=== PATIENT | male | born 1975 | race American Indian/Alaskan Native ===

== ENCOUNTER 2017-11-01 18:24 | Emergency (ER) | payer BC ==
[2017-11-01 18:36] VITALS: BP 126/86; PULSE 93; RESP 16; TEMP 99.3; O2SAT 99
[2017-11-01] MEDS ORDERED: Sodium Chloride 0.9% 500 ML IV STA (19:48)
--- NOTE | 2017-11-01 20:00 | ED PDOC ---
Arrival/HPI - General Historian: Patient - History of Present Illness Time/Duration: Prior to Arrival Symptom Onset: Sudden Symptom Course: Unchanged Quality: Other (sharp ) Activities at Onset: Light Context: Home <Lauren Swann PA-C - Last Filed: 11/02/17 00:52> <Job Shipley - Last Filed: 11/02/17 05:00> - General Chief Complaint: Abdominal Pain Time Seen by Provider: 11/01/17 19:19 - History of Present Illness Narrative History of Present Illness (Text): 11/01/17 19:58 A 42 year old male, who denies any significant past medical history, presents to the emergency department for left sided flank pain that had an immediate on set. The patient reports the pain as constant, sharp, and non-radiating. The patient denies having this symptom in the past or having kidney stones. The patient denies any urinary symptoms, nausea, vomiting, diarrhea, or any other complaints at this time. PM[place] (Lauren Swann PA-C) Past Medical History - Provider Review Nursing Documentation Reviewed: Yes - Cardiac Hx Cardiac Disorders: No - Pulmonary Hx Respiratory Disorders: No - Neurological Hx Neurological Disorder: No - HEENT Hx HEENT Disorder: No - Renal Hx Renal Disorder: No - Endocrine/Metabolic Hx Endocrine Disorders: No - Integumentary Hx Dermatological Disorder: Yes Other/Comment: ACNE - Musculoskeletal/Rheumatological Hx Musculoskeletal Disorders: Yes Hx Gout: Yes - Gastrointestinal Hx Gastrointestinal Disorders: No - Genitourinary/Gynecological Hx Genitourinary Disorders: No - Psychiatric Hx Psychophysiologic Disorder: No Hx Substance Use: No <Lauren Swann PA-C - Last Filed: 11/02/17 00:52> Family/Social History - Physician Review Nursing Documentation Reviewed: Yes Family/Social History: Other (Diabetes and Cancer) Smoking Status: Never Smoked Hx Alcohol Use: Yes Frequency of alcohol use: Socially Hx Substance Use: No <Lauren Swann PA-C - Last Filed: 11/02/17 00:52> Allergies/Home Meds <Lauren Swann PA-C - Last Filed: 11/02/17 00:52> <Job Shipley - Last Filed: 11/02/17 05:00> Allergies/Adverse Reactions: Allergies No Known Allergies Allergy (Verified 11/01/17 18:30) Home Medications: Home Meds Medication Instructions Recorded Confirmed Doxycycline Hyclate [Doryx] 2 tab PO DAILY 11/01/17 11/01/17 Review of Systems - Review of Systems Gastrointestinal: absent: Diarrhea, Nausea, Vomiting Genitourinary Male: absent: Dysuria, Frequency, Hematuria Musculoskeletal: Other (left sided flank pain ) <Lauren Swann PA-C - Last Filed: 11/02/17 00:52> Physical Exam Vital Signs Reviewed: Yes Temperature: Afebrile Blood Pressure: Normal Pulse: Tachycardic Respiratory Rate: Normal Appearance: Positive for: Well-Appearing, Non-Toxic, Comfortable Pain Distress: Mild Mental Status: Positive for: Alert and Oriented X 3 - Systems Exam Head: Present: Atraumatic, Normocephalic Pupils: Present: PERRL Extroacular Muscles: Present: EOMI Conjunctiva: Present: Normal Mouth: Present: Moist Mucous Membranes Neck: Present: Normal Range of Motion Respiratory/Chest: Present: Clear to Auscultation, Good Air Exchange. No: Respiratory Distress, Accessory Muscle Use Cardiovascular: Present: Regular Rate and Rhythm, Normal S1, S2. No: Murmurs Abdomen: Present: Tenderness (left lower quadrant and left flank tenderness ), Normal Bowel Sounds. No: Distention, Peritoneal Signs Back: Present: Normal Inspection Upper Extremity: Present: Normal Inspection. No: Cyanosis, Edema Lower Extremity: Present: Normal Inspection. No: Edema Neurological: Present: GCS=15, CN II-XII Intact, Speech Normal Skin: Present: Warm, Dry, Normal Color. No: Rashes Psychiatric: Present: Alert, Oriented x 3, Normal Insight, Normal Concentration <Lauren Swann PA-C - Last Filed: 11/02/17 00:52> Vital Signs Temp Pulse Resp BP Pulse Ox 11/01/17 18:34 99.3 F 93 H 16 126/86 99 Medical Decision Making <Lauren Swann PA-C - Last Filed: 11/02/17 00:52> <Job Shipley - Last Filed: 11/02/17 05:00> ED Course and Treatment: 01/01/18 20:01 Impression: A 42 year old male with left sided flank pain. Differential Diagnosis included but are not limited to: Plan: -- Abd & Pel CT -- Labs -- Toadol, IV Fluids -- Urinalysis -- Reassess and disposition Progress Notes: Labs reviewed and are wnl, WBC is nl, UA shows no blood or evidence of UTI. Patient went to CT. On reevaluation, patient reports that his pain is improving, reports no nausea, vomiting, diarrhea. Has no additional complaints at this time. On exam, abdomen remained soft with mild left lower quadrant tenderness, no guarding, no rebound. CT results still pending. CT results shows +acute diverticulitis in the descending colon. Cipro IV and flagyl IV ordered. Patient notified of CT results. On second reevaluation, patient states that his pain is controlled at this time. He has no complaints. Abdominal exam reveals minimal left lower quadrant tenderness, no guarding, no rebound. Based on history, exam and diagnostic results plan will be for outpatient follow -up. Diagnosis of diverticulitis discussed with the patient in great detail. Patient advised of the importance of immediate follow-up with his PMD in 1-2 days without fail for re-evaluation. patient states that he feels comfortable going home and he states that he will be able to see his PMD tomorrow. Advised to take medication as prescribed. Return to the emergency room at any time for any new or worsening symptoms. Patient states he fully agrees with and understands discharge instructions. States that he agrees with the plan and disposition. Verbalized and repeated discharge instructions and plan. I have given the patient opportunity to ask any additional questions. (Shree CONNELLY,Lauren Morales) - Lab Interpretations Lab Results: 11/01/17 19:50 11/01/17 19:50 Lab Results 11/01/17 19:50: PT 11.1, INR 1.02, APTT 29.0 11/01/17 19:50: Sodium 139, Potassium 4.6, Chloride 103, Carbon Dioxide 26, Anion Gap 15, BUN 11, Creatinine 1.2, Est GFR ( Amer) > 60, Est GFR (Non- Af Amer) > 60, Random Glucose 87, Calcium 9.7, Total Bilirubin 0.5, AST 29, ALT 35, Alkaline Phosphatase 64, Total Protein 8.1, Albumin 4.4, Globulin 3.7, Albumin/Globulin Ratio 1.2 11/01/17 19:50: WBC 7.9, RBC 4.96, Hgb 16.1, Hct 46.5, MCV 93.8, MCH 32.5, MCHC 34.6, RDW 12.0, Plt Count 209, MPV 10.5, Gran % 67.6, Lymph % (Auto) 23.6, [place] % (Auto) 8.2 H, Eos % (Auto) 0.5 L, Baso % (Auto) 0.1, Gran # 5.37, Lymph # 1.9 , [place] # 0.7 H, Eos # 0.0, Baso # 0.01 11/01/17 19:19: Urine Color Yellow, Urine Appearance Clear, Urine pH 6.0, Ur Specific [place] >= 1.030, Urine Protein Negative, Urine Glucose (UA) Negative, Urine Ketones Negative, Urine Blood Negative, Urine Nitrate Negative, Urine Bilirubin Negative, Urine Urobilinogen 0.2, Ur Leukocyte Esterase Negative - RAD Interpretation Radiology Orders: 11/01/17 19:48 ABD & PELVIS W/O PO OR IV CONT [CT] Stat - Medication Orders Current Medication Orders: Discontinued Medications Sodium Chloride (Sodium Chloride 0.9%) 500 mls @ 1,000 mls/hr IV .Q30M STA Stop: 11/01/17 20:17 Last Admin: 11/01/17 20:12 Dose: 1,000 mls/hr eMAR Start Stop Document 11/01/17 20:12 SS (Rec: 11/01/17 20:12 SS [id number]) Intravenous Solution Start Date 11/01/17 Start Time 20:12 End Date 11/01/17 End time 20:42 Total Infusion Time 30 Ciprofloxacin (Cipro 400mg/200ml Dsw) 400 mg in 200 mls @ 133.3 mls/hr IVPB STAT STA PRN Reason: Protocol Stop: 11/02/17 00:13 Last Admin: 11/01/17 23:28 Dose: 133.3 mls/hr eMAR Start Stop Document 11/01/17 23:28 SS (Rec: 11/01/17 23:28 SS [id number]) Intravenous Solution Start Date 11/01/17 Start Time 23:08 End Date 11/01/17 Metronidazole (Flagyl) 500 mg in 100 mls @ 100 mls/hr IVPB STAT STA PRN Reason: Protocol Stop: 11/01/17 23:42 Last Admin: 11/02/17 01:12 Dose: 100 mls/hr eMAR Start Stop Document 11/02/17 01:12 SS (Rec: 11/02/17 01:12 SS [id number]) Intravenous Solution Start Date 11/02/17 Start Time 00:45 End Date 11/02/17 End time 01:45 Total Infusion Time 60 Ketorolac Tromethamine (Toradol) 30 mg IVP STAT STA Stop: 11/01/17 19:49 Last Admin: 11/01/17 20:12 Dose: 30 mg MAR Pain Assessment Document 11/01/17 20:12 SS (Rec: 11/01/17 20:13 SS [id number]) Pain Reassessment Is this a pain reassessment? No Sleep Is patient sleeping during reassessment? No Presence of Pain Presence of Pain Yes Pain Scale Used Pain Scale Used Numeric Location Left, Right or Bilateral Left Upper or Lower Lower Pain Location Body Site Abdomen Description Description Constant Intensity of Pain at present 8 IVP Administration Document 11/01/17 20:12 SS (Rec: 11/01/17 20:13 SS [id number]) Charges for Administration # of IVP Administrations 1 - PA / GEAR TOOTH GRINDING MACHINE OPERATOR / Resident Statement SANDRA has reviewed & agrees with the documentation as recorded. - Scribe Statement The provider has reviewed the documentation as recorded by the Scribe <Lauren Swann PA-C - Last Filed: 11/02/17 00:52> - PA / GEAR TOOTH GRINDING MACHINE OPERATOR / Resident Statement SANDRA has reviewed & agrees with the documentation as recorded. SANDRA has examined the patient and agrees with the treatment plan. <Job Shipley - Last Filed: 11/02/17 05:00> - Scribe Statement Josie Tafoya Provider Scribe Attestation: All medical record entries made by the Scribe were at my direction and personally dictated by me. I have reviewed the chart and agree that the record accurately reflects my personal performance of the history, physical exam, medical decision making, and the department course for this patient. I have also personally directed, reviewed, and agree with the discharge instructions and disposition. (Lauren Swann PA-C) Disposition/Present on Arrival - Present on Arrival Any Indicators Present on Arrival: No History of DVT/PE: No History of Uncontrolled Diabetes: No Urinary Catheter: No History of Decub. Ulcer: No History Surgical Site Infection Following: None - Disposition Have Diagnosis and Disposition been Completed?: Yes Disposition Time: 00:00 Patient Plan: Discharge <Lauren Swann PA-C - Last Filed: 11/02/17 00:52> <Job Shipley - Last Filed: 11/02/17 05:00> - Disposition Diagnosis: Acute diverticulitis Disposition: HOME/ ROUTINE Condition: STABLE Discharge Instructions (ExitCare): Diverticulitis (ED) Print Language: MACEDONIAN Additional Instructions: Thank you for letting us take care of you today. You were treated for acute diverticulitis. The emergency medical care you received today was directed at your acute symptoms. If you were prescribed any medication, please fill it and take as directed. It may take several days for your symptoms to resolve. Return to the Emergency Department if your symptoms worsen, do not improve, or if you have any other problems. Please contact your doctor in 1-2 days for re-evaluation and follow up. Bring any paperwork you were given at discharge with you along with any medications you are taking to your follow up visit. Our treatment cannot replace ongoing medical care by a primary care provider (PCP) outside of the emergency department. Thank you for allowing the [facility] team to be part of your care today. Prescriptions: Ciprofloxacin HCl [Cipro] 500 mg PO BID #14 tablet Metronidazole [Flagyl] 500 mg PO TID #21 tab Forms: datatracker (Swedish), WORK NOTE
[2017-11-01 20:03] LABS: WHITE BLOOD COUNT 7.9 10^3/ul (4.5-11.0)
[2017-11-01 20:04] LABS: BASO # 0.01 K/mm3 (0.0-2.0); BASO % 0.1 % (0.0-3.0); EOS % 0.5 % (1.5-5.0); GRAN # 5.37 (1.4-6.5); GRAN % 67.6 % (50.0-68.0); HEMOGLOBIN 16.1 g/dL (14.0-18.0); LYMPH # 1.9 (1.2-3.4); LYMPH % 23.6 % (22.0-35.0); MEAN CELL VOLUME 93.8 fl (80.0-105.0); MEAN CORPUSCULAR HEMOGLOBIN 32.5 pg (25.0-35.0); MEAN CORPUSCULAR HGB CONC 34.6 g/dl (31.0-37.0); MEAN PLATELET VOLUME 10.5 fl (7.0-11.0); MONO # 0.7 (0.1-0.6); MONO % 8.2 % (1.0-6.0); RBC 4.96 10^6/uL (3.5-6.1)
[2017-11-01 20:11] LABS: INR 1.02 (0.93-1.08); PROTHROMBIN TIME 11.1 SECONDS (9.4-12.5)
[2017-11-01 20:11] LABS: URINE APPEARANCE CLEAR (CLEAR); URINE BILIRUBIN NEGATIVE (NEGATIVE); URINE BLOOD NEGATIVE (NEGATIVE); URINE COLOR YELLOW (YELLOW); URINE GLUCOSE (UA) NEGATIVE (NEGATIVE); URINE LEUKOCYTE ESTERASE NEGATIVE Leu/uL (NEGATIVE); URINE NITRATE NEGATIVE (NEGATIVE); URINE PROTEIN NEGATIVE mg/dL (<30 mg/dL); URINE UROBILINOGEN 0.2 E.U./dL (<1 E.U./dL)
[2017-11-01 20:13] LABS: ALB/GLOB RATIO 1.2 (1.1-1.8); ALBUMIN 4.4 g/dL (3.0-4.8); CALCIUM 9.7 mg/dL (8.4-10.5); GFR AFRICAN-AMERICAN > 60; GFR NON-AFRICAN AMERICAN > 60
[2017-11-01 20:26] LABS: ALT/SGPT 35 U/L (7-56); AST/SGOT 29 U/L (17-59); BLOOD UREA NITROGEN 11 mg/dL (7-21)
--- NOTE | 2017-11-01 22:13 | CT ---
EXAM: CT Abdomen and Pelvis Without Intravenous Contrast CLINICAL HISTORY: 42 years old, male; Pain; Abdominal pain; Acute; Additional info: L flank pain TECHNIQUE: Axial computed tomography images of the abdomen and pelvis without intravenous contrast. All CT scans at this facility use one or more dose reduction techniques, viz.: automated exposure control; ma/kV adjustment per patient size (including targeted exams where dose is matched to indication; i.e. head); or iterative reconstruction technique. Coronal and sagittal reformatted images were created and reviewed. COMPARISON: No relevant prior studies available. FINDINGS: Lower thorax: Minimal atelectasis/scarring. ABDOMEN: Liver: Unremarkable. Gallbladder and bile ducts: No calcified stones. No ductal dilation. Pancreas: Unremarkable. No ductal dilation. Spleen: No splenomegaly. Adrenals: No mass. Kidneys and ureters: No renal calculi. No hydronephrosis. Stomach and bowel: Underdistention of stomach, limiting evaluation. Scattered diverticula within colon. Mild mural thickening short segment of descending colon. Mild stranding within adjacent fat. No obstruction. Appendix: Normal caliber. No inflammation. PELVIS: Bladder: Unremarkable. No stones. Reproductive: Unremarkable as visualized. ABDOMEN and PELVIS: Intraperitoneal space: No significant fluid collection. No free air. Bones/joints: Mild degenerative changes of hip joints. No acute fracture. Soft tissues: Minimal gynecomastia. Small umbilical hernia containing fat. Vasculature: Unremarkable. No aneurysm. Lymph nodes: No pathologically enlarged lymph nodes. IMPRESSION: 1. Findings compatible with acute diverticulitis of descending colon. Recommend endoscopy following resolution. 2. No definite CT evidence of urolithiasis. 3. Incidental/non-acute findings are described above.
[2017-11-01] MEDS ORDERED: metroNIDAZOLE IV 500 mg/100 ml 500 MG/100 ML BAG IVPB STA (22:43)
[2017-11-01] MEDS ORDERED: Ciprofloxacin 400mg/200ml D5W 400 MG/200 ML BAG IVPB STA (22:43)
== END 2017-11-02 01:45 | disposition home or self-care (01) ==
LOC: ED 18:24
DX: K57.92 Diverticulitis of intestine, part unspecified, without perforation or abscess without bleeding (principal)
CPT/HCPCS: 74176; 80053; 81003; 85025; 85610; 85730; 87086; 96365; 96374; 99283; J0744; J1885; J7040

== ENCOUNTER 2018-02-25 16:18 | Inpatient (IN) | payer SELFPAY ==
[2018-02-25 17:12] VITALS: BMI 29.0
[2018-02-25] MEDS ORDERED: Sodium Chloride 0.9% 1,000 ML IV STA (17:19)
[2018-02-25] MEDS ORDERED: HYDROmorphone 1 mg/ml ISec IVP STA (17:20)
[2018-02-25] MEDS ORDERED: HYDROmorphone 0.5 mg/0.5 ml ISec IVP STA (17:33)
--- NOTE | 2018-02-25 17:34 | ED PDOC ---
Arrival/HPI - General Chief Complaint: Abdominal Pain Time Seen by Provider: 02/25/18 17:13 Historian: Patient - History of Present Illness Narrative History of Present Illness (Text): 02/25/18 17:34 42 year old male, with past medical history significant for acute diverticulitis , presents to the emergency department complaining of severe left lower abdominal discomfort since yesterday. Patient informs non-radiating intermittent pain lasting for few seconds at most rated at 10/10 in severity. Patient informs symptoms are consistent with diverticulitis diagnosed in November 2017. Since yesterday, patient expresses loss of appetite and subjective warm feeling. Patient currently denies any fever, chills, nausea, vomiting, diarrhea, chest pain, shortness of breath, urinary output changes, changes in bowel movement or any other complaints. Patient informs having an episode of nausea, vomiting and diarrhea 6 days ago but currently denies the symptoms. Patient additionally denies any fall or trauma. Patient is here in the emergency department for further evaluation. PMD: Dr. Jaya FONTAINE at [place]: Received colonoscopy on December 2017, results were negative. Time/Duration: 24 hours Symptom Onset: Gradual Symptom Course: Unchanged Quality: Aching Severity Level: 10 Activities at Onset: Light Context: Home Past Medical History - Provider Review Nursing Documentation Reviewed: Yes - Travel History Have you recently traveled outside [place] w/in the past 3 mons?: No - Past History Past History: No Previous - Infectious Disease Hx of Infectious Diseases: None - Tetanus Immunization Tetanus Immunization: Unknown - Cardiac Hx Cardiac Disorders: No - Pulmonary Hx Respiratory Disorders: No - Neurological Hx Neurological Disorder: No - HEENT Hx HEENT Disorder: No - Renal Hx Renal Disorder: No - Endocrine/Metabolic Hx Endocrine Disorders: No - Hematological/Oncological Hx Blood Disorders: No - Integumentary Hx Dermatological Disorder: No - Musculoskeletal/Rheumatological Hx Musculoskeletal Disorders: Yes Hx Gout: Yes - Gastrointestinal Hx Gastrointestinal Disorders: Yes Hx Diverticulitis: Yes - Genitourinary/Gynecological Hx Genitourinary Disorders: No - Psychiatric Hx Psychophysiologic Disorder: No Hx Emotional Abuse: No Hx Physical Abuse: No Hx Substance Use: No - Anesthesia Hx Anesthesia: No - Suicidal Assessment Feels Threatened In Home Enviroment: No Family/Social History - Physician Review Nursing Documentation Reviewed: Yes Family/Social History: No Known Family HX Smoking Status: Never Smoked Hx Alcohol Use: Yes Frequency of alcohol use: Socially Hx Substance Use: No Hx Substance Use Treatment: No Allergies/Home Meds Allergies/Adverse Reactions: Allergies No Known Allergies Allergy (Verified 11/01/17 18:30) Home Medications: Home Meds Medication Instructions Recorded Confirmed No Known Home Med 11/24/17 11/24/17 Review of Systems - Physician Review All systems were reviewed & negative as marked: Yes - Review of Systems Constitutional: Normal. absent: Fevers Eyes: Normal ENT: Normal Respiratory: Normal. absent: SOB Cardiovascular: Normal. absent: Chest Pain Gastrointestinal: Normal, Abdominal Pain, Appetite Changes. absent: Diarrhea, Nausea, Vomiting Genitourinary Male: Normal. absent: Urinary Output Changes Musculoskeletal: Normal Skin: Normal Neurological: Normal Endocrine: Normal Hemo/Lymphatic: Normal Psychiatric: Normal Physical Exam Vital Signs Reviewed: Yes Vital Signs Temp Pulse Resp BP Pulse Ox 02/25/18 22:52 100.4 F H 99 H 20 117/72 02/25/18 21:03 87 17 119/71 98 02/25/18 17:13 99.4 F 106 H 18 148/76 98 Temperature: Afebrile Blood Pressure: Normal Pulse: Tachycardic Respiratory Rate: Normal Appearance: Positive for: Well-Appearing, Non-Toxic, Uncomfortable, Other (alert /awake; GCS = 15, oriented x 3, uncomfortable, mild distress due to abd pain, resting in bed, cooperative) Pain Distress: Mild Mental Status: Positive for: Alert and Oriented X 3 - Systems Exam Head: Present: Atraumatic, Normocephalic Pupils: Present: PERRL, Other (no nystagmus, no photophobia, sclera anicteric) Extroacular Muscles: Present: EOMI Conjunctiva: Present: Normal Ears: Present: Normal Mouth: Present: Moist Mucous Membranes, Normal Teeth, Other (uvula/tongue are midline, no exudate/lesions, no drooling/stridor) Pharnyx: Present: Normal Nose (External): Present: Atraumatic Nose (Internal): Present: Normal Inspection Neck: Present: Normal Range of Motion, Trachea Midline, Other (no nuchal rigidity, no meningeal signs, no midline tenderness). No: Meningeal Signs, MIDLINE TENDERNESS, Paraspinal Tenderness Respiratory/Chest: Present: Clear to Auscultation, Good Air Exchange, Other ( CTA b/l, no w/r/r, no accessory muscle use noted, no tachypenia). No: Respiratory Distress, Accessory Muscle Use Cardiovascular: Present: Regular Rate and Rhythm, Normal S1, S2. No: Murmurs Abdomen: Present: Tenderness (left lower abd tenderness), Normal Bowel Sounds, Other (No Bang's sign; no mcburney's point tenderness, no masses/rebund/ guarding/rigidity; + left lower abd tenderness). No: Distention, Peritoneal Signs, Rebound, Guarding, McBurney's Point Tender, Mass/Organomegaly Back: Present: Normal Inspection. No: CVA Tenderness, Midline Tenderness, Paraspinal Tenderness Upper Extremity: Present: Normal Inspection, Normal ROM, NORMAL PULSES, Neurovascularly Intact. No: Cyanosis, Edema Lower Extremity: Present: Normal Inspection, NORMAL PULSES, Normal ROM, Neurovascularly Intact. No: Edema, Laura's Sign Neurological: Present: GCS=15, CN II-XII Intact, Speech Normal Skin: Present: Warm, Dry, Normal Color, Other (cap refill < 1sec, no ulcerations , no petechiae, no rashes). No: Rashes Psychiatric: Present: Alert, Oriented x 3, Normal Insight, Normal Concentration Medical Decision Making ED Course and Treatment: 02/25/18 17:40 Impression: 42 year old male presents to the emergency department for left lower abdominal pain since yesterday. Differential Diagnosis: I have considered all differential diagnoses regarding patient's chief medical complaints/clinical findings but are not limited to: abdominal pain rule out UTI vs. abdominal abscess vs. diverticulitis vs. colitis Plan: -- CT of Abdomen/pelvis -- Labs -- Urinalysis -- Pepcid -- Dilaudid -- Reassess and disposition Progress Notes: pt felt improvement with pain medications, but on repeate abd, + persistent abd pain pt is awaiting CT results 1899 pt states abd pain remains and would like further pain control [address] results, due to abnl findings will recommend patient for admission and pain control and abx pt is made aware of his medical results pt agrees with admission 02/25/18 21:[address] Raza, medical service welcome wagon hostess, who is made aware and agrees with ED plan to provide NPO, and antibiotics and to consult Dr. Kenny ; Dr Raza will admit patient Re-evaluation Time: 19:00 Reassessment Condition: Improving,but remains with symptoms - Lab Interpretations Lab Results: 02/25/18 18:36 02/25/18 18:36 Lab Results 02/25/18 18:36: Sodium 139, Potassium 4.1, Chloride 103, Carbon Dioxide 25, Anion Gap 15, BUN 12, Creatinine 1.1, Est GFR ( Amer) > 60, Est GFR (Non- Af Amer) > 60, Random Glucose 91, Calcium 9.6, Total Bilirubin 1.0, AST 45, ALT 50, Alkaline Phosphatase 64, Total Protein 7.5, Albumin 4.3, Globulin 3.2, Albumin/Globulin Ratio 1.4, Lipase 59 02/25/18 18:36: PT 12.3, INR 1.08, APTT 30.3 02/25/18 18:36: WBC 12.0 H D, RBC 4.82, Hgb 15.4, Hct 44.5, MCV 92.3, MCH 32.0, MCHC 34.6, RDW 13.4, Plt Count 183, MPV 10.6, Gran % 80.0 H, Lymph % (Auto) 8.7 L, [place] % (Auto) 11.2 H, Eos % (Auto) 0.0 L, Baso % (Auto) 0.1, Gran # 9.57 H, Lymph # (Auto) 1.0 L, [place] # (Auto) 1.3 H, Eos # (Auto) 0.0, Baso # (Auto) 0.01 02/25/18 18:02: Urine Color Yellow, Urine Appearance Clear, Urine pH 6.0, Ur Specific [place] 1.025, Urine Protein Negative, Urine Glucose (UA) Negative, Urine Ketones Negative, Urine Blood Negative, Urine Nitrate Negative, Urine Bilirubin Negative, Urine Urobilinogen 0.2, Ur Leukocyte Esterase Negative I have reviewed the lab results: Yes Interpretation: Abnormal lab values (elevated WBCs) - RAD Interpretation Narrative RAD Interpretations (Text): 02/25/18 20:56 CT of Abdomen/Pelvis reviewed by radiologist, shows: FINDINGS: Lung bases: No acute abnormality as visualized. ABDOMEN: Liver: No acute abnormality as visualized. Gallbladder and bile ducts: No acute abnormality as visualized. Pancreas: No acute abnormality as visualized. Spleen: No splenomegaly. Adrenals: No acute abnormality as visualized. Kidneys and ureters: Symmetric emhancement. No hydronephrosis. Stomach and bowel: Evaluation limited without enteric contrast. Colonic diverticula. Segment of descending/sigmoid colon demonstrates severe bowel thickening and surrounding fluid/inflammatory stranding. Concern for intramural abscess formation within the bowel, axial images 101-136. Foci of air appear to be within diverticula, but microperforation cannot be excluded. PELVIS: Appendix: No findings to suggest acute appendicitis. Bladder: No acute abnormality as visualized. Reproductive: No acute abnormality as visualized. ABDOMEN and PELVIS: Intraperitoneal space: Small amount of free fluid in the pelvis. No free air. Bones/joints: No acute abnormality as visualized. Soft tissues: Small fat-containing umbilical hernia. Vasculature: No acute abnormality as visualized. No abdominal aortic aneurysm. Lymph nodes: No acute abnormality as visualized. IMPRESSION: Appearance most consistent with acute diverticulitis with concern for intramural abscess. Foci of air appear to be within diverticula, but microperforation cannot be excluded. Please see additional details/findings as above. Radiology Orders: 02/25/18 17:20 ABD & PELVIS IV CONTRAST ONLY [CT] Stat Specialist Managers: Radiologist - Medication Orders Current Medication Orders: Discontinued Medications Acetaminophen (Tylenol 325mg Tab) 650 mg PO STAT STA Stop: 02/25/18 21:36 Last Admin: 02/25/18 22:21 Dose: 650 mg Famotidine (Pepcid) 20 mg IVP STAT STA Stop: 02/25/18 17:20 Last Admin: 02/25/18 18:04 Dose: 20 mg IVP Administration Document 02/25/18 18:04 SF (Rec: 02/25/18 18:04 [email or web address]) Charges for Administration # of IVP Administrations 1 Hydromorphone HCl (Dilaudid) 1 mg IVP STAT STA Stop: 02/25/18 17:34 Last Admin: 02/25/18 18:04 Dose: 1 mg MAR Pain Assessment Document 02/25/18 18:04 SF (Rec: 02/25/18 18:04 SF [email or web address]) Pain Reassessment Is this a pain reassessment? Yes Sleep Is patient sleeping during reassessment? No Presence of Pain Presence of Pain Yes Pain Scale Used Pain Scale Used Numeric IVP Administration Document 02/25/18 18:04 SF (Rec: 02/25/18 18:04 SF [email or web address]) Charges for Administration # of IVP Administrations 2 Sodium Chloride (Sodium Chloride 0.9%) 1,000 mls @ 1,000 mls/hr IV .Q1H STA Stop: 02/25/18 18:18 Last Admin: 02/25/18 17:50 Dose: 1,000 mls/hr eMAR Start Stop Document 02/25/18 17:50 SF (Rec: 02/25/18 17:50 SF [email or web address]) Intravenous Solution Start Date 02/25/18 Start Time 17:50 End Date 02/25/18 End time 18:50 Total Infusion Time 60 Ciprofloxacin (Cipro 400mg/200ml Dsw) 400 mg in 200 mls @ 133.3 mls/hr IVPB STAT STA PRN Reason: Protocol Stop: 02/25/18 22:35 Last Admin: 02/25/18 21:47 Dose: 133.3 mls/hr eMAR Start Stop Document 02/25/18 21:47 IT (Rec: 02/25/18 21:48 IT [id number]) Intravenous Solution Start Date 02/25/18 Start Time 21:47 End Date 02/25/18 Metronidazole (Flagyl) 500 mg in 100 mls @ 100 mls/hr IVPB STAT STA PRN Reason: Protocol Stop: 02/25/18 22:06 Last Admin: 02/25/18 23:01 Dose: 100 mls/hr eMAR Start Stop Document 02/25/18 23:01 [employer] (Rec: 02/25/18 23:02 [employer]IST [id number]) Intravenous Solution Start Date 02/25/18 Start Time 23:02 Morphine Sulfate (Morphine) 4 mg IVP STAT STA Stop: 02/25/18 21:35 Last Admin: 02/25/18 22:21 Dose: 4 mg MAR Pain Assessment Document 02/25/18 22:21 IT (Rec: 02/25/18 22:21 IT [id number]) Pain Reassessment Is this a pain reassessment? No Sleep Is patient sleeping during reassessment? No Presence of Pain Presence of Pain Yes Pain Scale Used Pain Scale Used Numeric IVP Administration Document 02/25/18 22:21 IT (Rec: 02/25/18 22:21 IT [id number]) Charges for Administration # of IVP Administrations 1 Pneumococcal Polyvalent Vaccine (Pneumovax 23 Vaccine) 0.5 ml IM .ONCE ONE Stop: 02/25/18 23:17 - Scribe Statement The provider has reviewed the documentation as recorded by the Scribe Gonzalo Yi. All medical record entries made by the Scribe were at my direction and personally dictated by me. I have reviewed the chart and agree that the record accurately reflects my personal performance of the history, physical exam, medical decision making, and the department course for this patient. I have also personally directed, reviewed, and agree with the discharge instructions and disposition. Disposition/Present on Arrival - Present on Arrival Any Indicators Present on Arrival: No History of DVT/PE: No History of Uncontrolled Diabetes: No Urinary Catheter: No History of Decub. Ulcer: No History Surgical Site Infection Following: None - Disposition Have Diagnosis and Disposition been Completed?: Yes Diagnosis: Acute diverticulitis, Intractable abdominal pain Disposition: HOSPITALIZED Disposition Time: 21:10 Patient Plan: Admission Condition: STABLE
[2018-02-25 18:09] LABS: URINE BILIRUBIN NEGATIVE (NEGATIVE); URINE BLOOD NEGATIVE (NEGATIVE); URINE GLUCOSE (UA) NEGATIVE (NEGATIVE); URINE LEUKOCYTE ESTERASE NEGATIVE Leu/uL (NEGATIVE); URINE PROTEIN NEGATIVE mg/dL (<30 mg/dL); URINE UROBILINOGEN 0.2 E.U./dL (<1 E.U./dL)
[2018-02-25 18:22] LABS: URINE APPEARANCE CLEAR (CLEAR); URINE COLOR YELLOW (YELLOW)
[2018-02-25 19:03] LABS: BASO # 0.01 K/mm3 (0.0-2.0); BASO % 0.1 % (0.0-3.0); GRAN # 9.57 (1.4-6.5); HEMOGLOBIN 15.4 g/dL (14.0-18.0); LYMPH % 8.7 % (22.0-35.0); MEAN CELL VOLUME 92.3 fl (80.0-105.0); MEAN CORPUSCULAR HGB CONC 34.6 g/dl (31.0-37.0); MEAN PLATELET VOLUME 10.6 fl (7.0-11.0); MONO # 1.3 (0.1-0.6); MONO % 11.2 % (1.0-6.0); RBC 4.82 10^6/uL (3.5-6.1); RED CELL DISTRIBUTION WIDTH 13.4 % (11.5-14.5)
[2018-02-25 19:09] LABS: ALB/GLOB RATIO 1.4 (1.1-1.8); ALBUMIN 4.3 g/dL (3.0-4.8); ALT/SGPT 50 U/L (7-56); AST/SGOT 45 U/L (17-59); BLOOD UREA NITROGEN 12 mg/dL (7-21); CALCIUM 9.6 mg/dL (8.4-10.5); GFR AFRICAN-AMERICAN > 60; GFR NON-AFRICAN AMERICAN > 60; INR 1.08 (0.93-1.08); LIPASE 59 U/L (23-300); PARTIAL THROMBOPLASTIN TIME 30.3 Seconds (25.1-36.5); PROTHROMBIN TIME 12.3 SECONDS (9.4-12.5)
[2018-02-25] MEDS ORDERED: Iohexol 350 MG/100 ML VIAL ONE (19:22)
--- NOTE | 2018-02-25 20:46 | CT ---
EXAM: CT Abdomen and Pelvis With Intravenous Contrast CLINICAL HISTORY: 42 years old, male; Pain; Abdominal pain; Localized; Left lower quadrant (llq); Additional info: Left lower abd pain x 1 day TECHNIQUE: Axial computed tomography images of the abdomen and pelvis with intravenous contrast. All CT scans at this facility use one or more dose reduction techniques, viz.: automated exposure control; ma/kV adjustment per patient size (including targeted exams where dose is matched to indication; i.e. head); or iterative reconstruction technique. Coronal and sagittal reformatted images were created and reviewed. CONTRAST: 100 mL of OMNI 350 administered intravenously. COMPARISON: CT - ABD PELVIS W/O PO OR IV CONT 2017-11-01 20:18 FINDINGS: Lung bases: No acute abnormality as visualized. ABDOMEN: Liver: No acute abnormality as visualized. Gallbladder and bile ducts: No acute abnormality as visualized. Pancreas: No acute abnormality as visualized. Spleen: No splenomegaly. Adrenals: No acute abnormality as visualized. Kidneys and ureters: Symmetric emhancement. No hydronephrosis. Stomach and bowel: Evaluation limited without enteric contrast. Colonic diverticula. Segment of descending/sigmoid colon demonstrates severe bowel thickening and surrounding fluid/inflammatory stranding. Concern for intramural abscess formation within the bowel, axial images 101-136. Foci of air appear to be within diverticula, but microperforation cannot be excluded. PELVIS: Appendix: No findings to suggest acute appendicitis. Bladder: No acute abnormality as visualized. Reproductive: No acute abnormality as visualized. ABDOMEN and PELVIS: Intraperitoneal space: Small amount of free fluid in the pelvis. No free air. Bones/joints: No acute abnormality as visualized. Soft tissues: Small fat-containing umbilical hernia. Vasculature: No acute abnormality as visualized. No abdominal aortic aneurysm. Lymph nodes: No acute abnormality as visualized. IMPRESSION: Appearance most consistent with acute diverticulitis with concern for intramural abscess. Foci of air appear to be within diverticula, but microperforation cannot be excluded. Please see additional details/findings as above.
[2018-02-25] MEDS ORDERED: Ciprofloxacin 400mg/200ml D5W 400 MG/200 ML BAG IVPB STA (21:05)
[2018-02-25] MEDS ORDERED: metroNIDAZOLE IV 500 mg/100 ml 500 MG/100 ML BAG IVPB STA (21:07)
[2018-02-25] MEDS ORDERED: Morphine 4 mg/ml ISec IVP STA (21:34)
[2018-02-25] MEDS ORDERED: Pneumococcal 23-Valent Vaccine IM ONE (23:16)
[2018-02-26] MEDS: metroNIDAZOLE IV 500 mg/100 ml 500 MG/100 ML BAG IVPB SCH ×3 (08:50→21:25)
[2018-02-26] MEDS: cefTRIAXone 1 gm 1 GM/100 ML BAG IVPB SCH (09:56)
[2018-02-26] MEDS ORDERED: Morphine 4 mg/ml ISec IVP PRN (10:22)
[2018-02-26] MEDS: Dextrose 5%/0.45% NS 1,000 ML IV SCH ×2 (10:31→20:30)
--- NOTE | 2018-02-26 13:26 | CP.PCM.CON ---
History of Present Illness - History of Present Illness History of Present Illness: Seen and examined at the bedside earlier this morning, chart reviewed. Request for GI consult is for acute diverticulitis. HPI: This is a 42-year-old male with a past medical history of acute diverticulitis, came to the emergency room with complaints of severe left lower quadrant abdominal discomfort started yesterday. The patient initial diverticular attack was November 2017. He had a colonoscopy with Dr. Sejal Blum on 11/24/2017 which did show diverticulosis in the sigmoid, descending and ascending colon. The patient reports that he recently came back from vacation, he went to [facility]. He consumed all various types of foods, even seafood. He did note that Wednesday night did not feel well, he had N/V with diarrhea which has now resolved. He recalls having hamburger and jerk chicken. He flew back home the next day. His last bowel movement was yesterday, it was soft no melena or bright red blood per rectum. He denies any weight loss or loss of appetite. On admission, patient had CT scan of abdomen and pelvis with IV contrast and they showed acute diverticulitis with concern for intramural abscess. There is foci air within diverticula, microperforation cannot be excluded. Past medical history: Acute diverticulitis Surgical history: Denies colonoscopy 11/24/2017 Family history: Mom with cancer but cannot recall, his brother with acute diverticulitis Social history: Denies tobacco use, drinks alcohol socially but endorses that on vacation he can drink excessively, denies illicit drugs Allergies: No known drug allergies Medications: Reviewed as per MAR ROS: Systems reviewed with positive findings, see HPI. Past Patient History - Infectious Disease Hx of Infectious Diseases: None - Tetanus Immunizations Tetanus Immunization: Unknown - Past Medical History & Family History Past Medical History?: Yes - Past Social History Smoking Status: Never Smoked - CARDIAC Hx Cardiac Disorders: No - PULMONARY Hx Respiratory Disorders: No - NEUROLOGICAL Hx Neurological Disorder: No - HEENT Hx HEENT Problems: No - RENAL Hx Chronic Kidney Disease: No - ENDOCRINE/METABOLIC Hx Endocrine Disorders: No - HEMATOLOGICAL/ONCOLOGICAL Hx Blood Disorders: No - INTEGUMENTARY Hx Dermatological Problems: No - MUSCULOSKELETAL/RHEUMATOLOGICAL Hx Musculoskeletal Disorders: Yes Hx Gout: Yes - GASTROINTESTINAL Hx Gastrointestinal Disorders: Yes Hx Diverticulitis: Yes - GENITOURINARY/GYNECOLOGICAL Hx Genitourinary Disorders: No - PSYCHIATRIC Hx Psychophysiologic Disorder: No Hx Emotional Abuse: No Hx Physical Abuse: No Hx Substance Use: No - SURGICAL HISTORY Hx Surgeries: No - ANESTHESIA Hx Anesthesia: No Meds Allergies/Adverse Reactions: Allergies Allergy/AdvReac Type Severity Reaction Status Date / Time No Known Allergies Allergy Verified 11/01/17 18:30 - Medications Medications: Current Medications Acetaminophen (Tylenol 325mg Tab) 650 mg PO Q6H PRN PRN Reason: Pain, moderate (4-7) Last Admin: 02/26/18 10:41 Dose: 650 mg Famotidine (Pepcid) 20 mg IVP Q12 [facility] Last Admin: 02/26/18 10:32 Dose: 20 mg Ceftriaxone Sodium (Rocephin 1 Gram Ivpb) 1 gm in 100 mls @ 100 mls/hr IVPB DAILY ANNA PRN Reason: Protocol Last Admin: 02/26/18 09:56 Dose: 100 mls/hr Metronidazole (Flagyl) 500 mg in 100 mls @ 100 mls/hr IVPB Q8 ANNA PRN Reason: Protocol Last Admin: 02/26/18 08:50 Dose: 100 mls/hr Dextrose/Sodium Chloride (Dextrose 5%/0.45% Ns 1000 Ml) 1,000 mls @ 125 mls/hr IV .Q8H [facility] Last Admin: 02/26/18 10:31 Dose: 125 mls/hr Morphine Sulfate (Morphine) 4 mg IVP Q4H PRN PRN Reason: Pain, severe (8-10) Ondansetron HCl (Zofran Inj) 4 mg IVP Q6H PRN PRN Reason: Nausea/Vomiting Physical Exam - Constitutional Appears: No Acute Distress - Head Exam Head Exam: NORMOCEPHALIC - Eye Exam Eye Exam: Normal appearance. absent: Scleral icterus - ENT Exam ENT Exam: Mucous Membranes Moist - Neck Exam Neck exam: Positive for: Normal Inspection - Respiratory Exam Respiratory Exam: Clear to Auscultation Bilateral, NORMAL BREATHING PATTERN. absent: Respiratory Distress - Cardiovascular Exam Cardiovascular Exam: +S1, +S2 - GI/Abdominal Exam GI & Abdominal Exam: Normal Bowel Sounds, Rebound (mild), Soft, Tenderness ( left lower quadrant). absent: Guarding - Extremities Exam Extremities exam: Positive for: pedal pulses present. Negative for: calf tenderness, pedal edema - Neurological Exam Neurological exam: Alert, Oriented x3 - Skin Skin Exam: Dry, Warm Results - Vital Signs Recent Vital Signs: Last Vital Signs Temp 98.4 F 02/26/18 06:00 Pulse 84 02/26/18 06:00 Resp 20 02/26/18 06:00 BP 127/68 02/26/18 06:00 Pulse Ox 99 02/26/18 06:00 - Labs Result Diagrams: 02/25/18 18:36 02/25/18 18:36 Assessment & Plan - Assessment and Plan (Free Text) Assessment: Assessment: Acute diverticulitis, ?abscess/microperforation CT scan reporting foci or air within diverticula History of diverticulosis with diverticulitis 11/2017 Plan: Continue nothing by mouth, on IVF for hydration Continue Flagyl 500 every 8 hours IV Start ceftriaxone 1 g IV daily Recommend surgical evaluation Monitor electrolytes GI prophylaxis Pain mgt. No DVT prophylaxis, patient ambulatory encouraged out of bed Thank you for this consult and for allowing us to participate in your patient's care, further recommendations based upon clinical course. Seen and discussed with Dr. Reyes who is covering Dr. Kenny.
--- NOTE | 2018-02-26 19:32 | CP.PCM.CON ---
History of Present Illness - History of Present Illness History of Present Illness: Surgery: Dr. Lr covering for Dr. Berg CC: Abd pain HPI: 42M w. pmh of diverticulitis and gout presents to ED w. abd pain. Pt states that he recently returned from vacation in [facility] last week. He states that he felt fine up until night when he began to experience LLQ abd pain that he initially thought was gas. However the pain increased in severity and became constant and described as a cramp. Pt denies N/V/D. Last BM was yesterday and was described as soft and non-bloody. He reports decreased appetite and a slight fever that was present on admission. In ED, CT scan showed acute diverticulitis w. concerns for intramural abscess, possible microperf. Pt states that last episode of diverticulitis was in November, which resolved w. conservative management. Pt states that he had colonoscopy done after acute phase which was unremarkable aside from diverticulosis. PMH: See above PSH: none Meds: MAR reviewed NKDA Social: +ETOH, no tobacco/drugs Fhx: Brother has diverticulitis, no FHx of colorectal CA Review of Systems - Review of Systems All systems: reviewed and no additional remarkable complaints except (HPI) Past Patient History - Infectious Disease Hx of Infectious Diseases: None - Tetanus Immunizations Tetanus Immunization: Unknown - Past Medical History & Family History Past Medical History?: Yes - Past Social History Smoking Status: Never Smoked - CARDIAC Hx Cardiac Disorders: No - PULMONARY Hx Respiratory Disorders: No - NEUROLOGICAL Hx Neurological Disorder: No - HEENT Hx HEENT Problems: No - RENAL Hx Chronic Kidney Disease: No - ENDOCRINE/METABOLIC Hx Endocrine Disorders: No - HEMATOLOGICAL/ONCOLOGICAL Hx Blood Disorders: No - INTEGUMENTARY Hx Dermatological Problems: No - MUSCULOSKELETAL/RHEUMATOLOGICAL Hx Musculoskeletal Disorders: Yes Hx Gout: Yes - GASTROINTESTINAL Hx Gastrointestinal Disorders: Yes Hx Diverticulitis: Yes - GENITOURINARY/GYNECOLOGICAL Hx Genitourinary Disorders: No - PSYCHIATRIC Hx Psychophysiologic Disorder: No Hx Emotional Abuse: No Hx Physical Abuse: No Hx Substance Use: No - SURGICAL HISTORY Hx Surgeries: No - ANESTHESIA Hx Anesthesia: No Meds Allergies/Adverse Reactions: Allergies Allergy/AdvReac Type Severity Reaction Status Date / Time No Known Allergies Allergy Verified 11/01/17 18:30 - Medications Medications: Current Medications Acetaminophen (Tylenol 325mg Tab) 650 mg PO Q6H PRN PRN Reason: Pain, moderate (4-7) Last Admin: 02/26/18 10:41 Dose: 650 mg Famotidine (Pepcid) 20 mg IVP Q12 [facility] Last Admin: 02/26/18 10:32 Dose: 20 mg Ceftriaxone Sodium (Rocephin 1 Gram Ivpb) 1 gm in 100 mls @ 100 mls/hr IVPB DAILY [facility] PRN Reason: Protocol Last Admin: 02/26/18 09:56 Dose: 100 mls/hr Metronidazole (Flagyl) 500 mg in 100 mls @ 100 mls/hr IVPB Q8 [facility] PRN Reason: Protocol Last Admin: 02/26/18 14:34 Dose: 100 mls/hr Dextrose/Sodium Chloride (Dextrose 5%/0.45% Ns 1000 Ml) 1,000 mls @ 125 mls/hr IV .Q8H [facility] Last Admin: 02/26/18 10:31 Dose: 125 mls/hr Morphine Sulfate (Morphine) 4 mg IVP Q4H PRN PRN Reason: Pain, severe (8-10) Ondansetron HCl (Zofran Inj) 4 mg IVP Q6H PRN PRN Reason: Nausea/Vomiting Physical Exam - Constitutional Appears: Non-toxic, No Acute Distress - Head Exam Head Exam: ATRAUMATIC, NORMOCEPHALIC - Eye Exam Eye Exam: EOMI - ENT Exam ENT Exam: Mucous Membranes Moist - Respiratory Exam Respiratory Exam: NORMAL BREATHING PATTERN. absent: Accessory Muscle Use, Respiratory Distress - GI/Abdominal Exam GI & Abdominal Exam: Soft, Tenderness (LLQ). absent: Distended, Firm, Guarding , Rebound, Rigid - Extremities Exam Extremities exam: Negative for: calf tenderness, pedal edema - Neurological Exam Neurological exam: Alert, Oriented x3 - Psychiatric Exam Psychiatric exam: Normal Affect, Normal Mood - Skin Skin Exam: Dry, Normal Color, Warm Results - Vital Signs Recent Vital Signs: Last Vital Signs Temp 98.5 F 02/26/18 14:00 Pulse 78 02/26/18 14:00 Resp 18 02/26/18 14:00 BP 111/69 02/26/18 14:00 Pulse Ox 95 02/26/18 14:00 - Labs Result Diagrams: 02/25/18 18:36 02/25/18 18:36 - Imaging and Cardiology CT scan - abdomen Status: Image reviewed by me, Report reviewed by me Assessment & Plan - Assessment and Plan (Free Text) Assessment: 42M w. diverticulitis -conservative management -NPO -IVF -abx -pain meds -serial abd exams -colonoscopy after acute phase resolves -d/w attending Domingo PGY3
--- NOTE | 2018-02-26 23:27 | CON ---
DATE: 02/26/2018 CONSULTATION IN GASTROENTEROLOGY This is Dr. Reyes covering for Dr. Kenny. HISTORY OF PRESENT ILLNESS: I have personally examined this patient at the bedside. I agree with Radha Arenas' assessment and recommendations. This patient has now a second attack of diverticulitis in the last 4 months. He had a colonoscopy approximately 2 months ago, which was negative for malignancy. CT scan of the abdomen and pelvis does show mural thickening in the descending and sigmoid colon with some pericolonic inflammatory changes. I do not see a pericolonic abscess or collection. RECOMMENDATIONS: 1. Continue IV antibiotics. 2. Continue n.p.o. for now. We will slowly advance diet if his abdominal pain improves. Sam Reyes MD
[2018-02-27] MEDS: Dextrose 5%/0.45% NS 1,000 ML IV SCH ×2 (05:00→20:18)
[2018-02-27] MEDS: metroNIDAZOLE IV 500 mg/100 ml 500 MG/100 ML BAG IVPB SCH ×3 (05:22→21:42)
--- NOTE | 2018-02-27 06:19 | HP ---
DATE OF EXAM: 02/26/2018 HISTORY OF PRESENT ILLNESS: This 42-year-old male was admitted to [facility] with left lower colon diverticulitis. The patient came to [facility] ER with complaints of severe left lower quadrant discomfort, which started yesterday. The patient had a similar attack of diverticulitis in 11/2017 and underwent a colonoscopy with Dr. Blum on 11/24/2017, which confirmed diverticulosis in his sigmoid colon and patient was advised to avoid seeds and nuts subsequently. The patient recently was on a vacation to [place]. He consumed much alcohol, but came back from the trip with nausea, vomiting and diarrhea and then noted the onset of crampy left lower quadrant abdominal pain. The patient denied any fever, chills or bloody bowel movements. But in the emergency room, was noted to have a CAT scan that was consistent with acute diverticulitis with concerns of an intramural abscess. Because of findings of possible microperforation, GI and surgical consultations have been requested. Family history is significant that his brother Urbano also has history of recurrent diverticulitis. SOCIAL HISTORY: The patient is an postal delivery officer. He is a nonsmoker, social drinker and denies any IV drug misuse. FAMILY HISTORY: Noncontributory except for brother Urbano with history of diverticulitis. ALLERGIES: HE DENIES ANY ALLERGIES TO MEDICATION. MEDICATIONS: States he takes no medication on an active basis. REVIEW OF SYSTEMS: CONSTITUTIONAL REVIEW: No fever, no chills. HEAD REVIEW: No headache. No knowledge of stroke EYE REVIEW: No change in visual acuity. EAR REVIEW: No hearing loss. THROAT REVIEW: No swallowing difficulty. NECK REVIEW: No stiffness. CARDIAC REVIEW: No chest pain. PULMONARY: No hemoptysis. GI: As per HPI. : No dysuria. SKIN: No rash. VASCULAR: No claudication. PSYCHOLOGIC: No anxiety. NEUROLOGIC: No stroke. PHYSICAL EXAMINATION: VITAL SIGNS: Temperature 98.4, respirations 20, pulse 84, blood pressure 127/68. Pulse ox 99%. HEENT: Head, normocephalic and atraumatic. Eyes, no icterus. Ears, clear. Throat, noninjected. NECK: Supple. HEART: S1 and S2. LUNGS: Clear. ABDOMEN: Soft. No rebound, no guarding. No tenderness. EXTREMITIES: No edema. SKIN: Without rash. NEUROLOGIC: Intact. PSYCHOLOGIC: Alert. VASCULAR: Legs warm to touch. LABORATORY DATA: White count 12,000, hemoglobin 15.4, hematocrit 44.5, platelets 183,000. PT/INR 1.08, PTT 30.3. Sodium 139, K 4.1, chloride 103, bicarb 25, BUN 12, creatinine 1.1, random blood sugar 91. Bilirubin 1, AST 45, ALT 50, alk phos 64. Lipase 59. Urinalysis unremarkable. Abdominal pelvic CT was reviewed, it is consistent with acute diverticulitis, possible intramural abscess. IMPRESSION: Acute on chronic recurrent diverticulitis. PLAN: The patient will be scheduled for repeat basic metabolic panel and CBC in a.m. Consultations with Dr. Sharonda Kenny from GI and Dr. Sampson Berg from Surgery have been requested. The patient will be treated with D5 0.45 saline at 125 mL per hour. He is ordered to receive Flagyl 500 mg IV every 8 hours, morphine 4 mg IV every 4 hours p.r.n. severe pain, Pepcid 20 mg IV every 12 hours, Rocephin 1 g IV every 24 hours, Tylenol 650 p.o. every 6 hours p.r.n. temperature greater than 101, Zofran 4 mg IV every 6 hours p.r.n. nausea and vomiting. He remains n.p.o. and based on his clinical progress, consultation, recommendation to additional workup will be entertained. All of the above was discussed in detail with the patient and his family member at the bedside. All questions were answered. Rosa M Raza MD MTDDonnell
--- NOTE | 2018-02-27 07:20 | CP.PCM.PN ---
Subjective - Date & Time of Evaluation Date of Evaluation: 02/27/18 Time of Evaluation: 07:17 - Subjective Subjective: Surgery: Dr. Lr Pt seen and examined. Resting comfortably in bed. Pain improved. Would like to start eating. Objective - Vital Signs/Intake and Output Vital Signs (last 24 hours): Temp Pulse Resp BP Pulse Ox 98 F 77 20 107/75 97 02/26/18 22:00 02/26/18 22:00 02/26/18 22:00 02/26/18 22:00 02/26/18 22:00 Intake and Output: 02/27/18 02/27/18 06:59 18:59 Intake Total 3000 Balance 3000 - Medications Medications: Current Medications Acetaminophen (Tylenol 325mg Tab) 650 mg PO Q6H PRN PRN Reason: Pain, moderate (4-7) Last Admin: 02/26/18 10:41 Dose: 650 mg Famotidine (Pepcid) 20 mg IVP Q12 [facility] Last Admin: 02/26/18 21:23 Dose: 20 mg Ceftriaxone Sodium (Rocephin 1 Gram Ivpb) 1 gm in 100 mls @ 100 mls/hr IVPB DAILY [facility] PRN Reason: Protocol Last Admin: 02/26/18 09:56 Dose: 100 mls/hr Metronidazole (Flagyl) 500 mg in 100 mls @ 100 mls/hr IVPB Q8 [facility] PRN Reason: Protocol Last Admin: 02/27/18 05:22 Dose: 100 mls/hr Dextrose/Sodium Chloride (Dextrose 5%/0.45% Ns 1000 Ml) 1,000 mls @ 125 mls/hr IV .Q8H [facility] Last Admin: 02/27/18 05:00 Dose: 125 mls/hr Morphine Sulfate (Morphine) 4 mg IVP Q4H PRN PRN Reason: Pain, severe (8-10) Ondansetron HCl (Zofran Inj) 4 mg IVP Q6H PRN PRN Reason: Nausea/Vomiting - Labs Labs: PT 12.3 SECONDS (9.4-12.5) 02/25/18 18:36 INR 1.08 (0.93-1.08) 02/25/18 18:36 APTT 30.3 Seconds (25.1-36.5) 02/25/18 18:36 - Constitutional Appears: Non-toxic, No Acute Distress - Head Exam Head Exam: ATRAUMATIC, NORMOCEPHALIC - Eye Exam Eye Exam: EOMI - ENT Exam ENT Exam: Mucous Membranes Moist - Respiratory Exam Respiratory Exam: NORMAL BREATHING PATTERN. absent: Accessory Muscle Use, Respiratory Distress - GI/Abdominal Exam GI & Abdominal Exam: Soft. absent: Distended, Firm, Guarding, Rigid, Tenderness , Rebound - Extremities Exam Extremities Exam: absent: Calf Tenderness, Pedal Edema - Neurological Exam Neurological Exam: Alert, Awake, Oriented x3 Assessment and Plan - Assessment and Plan (Free Text) Assessment: 42M w. diverticulitis -f/u AM labs -will start CLD -monitor bowel fxn -ADAT -c/w abx -d/w attending Zemaitis PGY3
[2018-02-27 07:45] LABS: HEMOGLOBIN 14.1 g/dL (14.0-18.0); MEAN CELL VOLUME 92.5 fl (80.0-105.0); MEAN CORPUSCULAR HEMOGLOBIN 31.3 pg (25.0-35.0); MEAN CORPUSCULAR HGB CONC 33.8 g/dl (31.0-37.0); MEAN PLATELET VOLUME 10.6 fl (7.0-11.0); RBC 4.51 10^6/uL (3.5-6.1); WHITE BLOOD COUNT 5.3 10^3/ul (4.5-11.0)
[2018-02-27 08:00] LABS: BLOOD UREA NITROGEN 12 mg/dL (7-21); CALCIUM 8.9 mg/dL (8.4-10.5); GFR AFRICAN-AMERICAN > 60; GFR NON-AFRICAN AMERICAN 60
[2018-02-27] MEDS: cefTRIAXone 1 gm 1 GM/100 ML BAG IVPB SCH (09:10)
--- NOTE | 2018-02-27 13:26 | PN ---
DATE: 02/27/2018 SUBJECTIVE: This 42-year-old male was examined at the bedside and his case was reviewed in detail with himself and nursing. The patient is seen earlier by surgery and had his diet advanced to clear liquids. He denies any fever, chills, chest pain or shortness of breath and T-max yesterday was 98.5. PHYSICAL EXAMINATION: VITAL SIGNS: Temperature 98, respirations 20, pulse 77 and blood pressure 107/75 with a pulse ox of 97% on room air. HEENT: Head: Normocephalic, atraumatic. Eyes: No icterus. Ears: Clear. Throat: Noninjected. NECK: Supple. HEART: Regular S1, S2. LUNGS: Clear. ABDOMEN: Soft. No rebound, no guarding, no tenderness. EXTREMITIES: No edema. SKIN: Without rash. NEUROLOGICAL: Intact. PSYCHOLOGICAL: Alert. VASCULAR: Legs warm to touch. LABORATORY DATA: White count 5300, hemoglobin 14.1, hematocrit 41.7, platelets 179,000. PT/INR 1.08, PTT 30.3. Sodium 142, K 3.8, chloride 104, bicarb 28, BUN 12, creatinine 1.3, random blood sugar is 84. Urinalysis was unremarkable. IMPRESSION: A 42-year-old male with recurrent diverticulitis. PLAN: To continue D5 0.45, but this will be reduced from 125 mL/hour to 70 mL/hour while monitoring clinical response to initiation of clear liquid diet. The patient continues on Flagyl 500 mg IV every 8, Pepcid 20 mg IV every 12, Rocephin 1 g IV every 24 and Zofran 4 mg IV every 6 hours p.r.n. nausea and vomiting. He is wearing antiembolism stockings that are removed at bedtime. He is encouraged to ambulate with assistance and based on discussion with Gastroenterology and Surgery, timing of diet advancement will be entertained. All of the above was discussed in detail with the patient and nursing. All questions were answered. Rosa M Raza MD ANDRÉS
--- NOTE | 2018-02-27 14:53 | PN ---
DATE: 02/27/[address] Kenny, this is Dr. Reyes covering. SUBJECTIVE: The patient is lying in bed. He states that his abdominal pain is less. He is currently tolerating clear liquid diet. He denies any fevers or chills. MEDICATIONS: Currently include Flagyl 500 mg IV every 8 hours, Rocephin 1 g IV daily, Zofran 4 mg IV as needed for nausea, Pepcid 20 mg IV every 12 hours and morphine sulfate 4 mg IV every 4 hours as needed for severe pain. PHYSICAL EXAMINATION VITAL SIGNS: Reveal temperature of 98.2, blood pressure 108/58, heart rate 67. HEENT: Reveals sclerae to be white. Conjunctivae pink. NECK: Supple. CHEST: Lungs are clear. HEART: Reveals regular rate and rhythm. ABDOMEN: Soft, mild left lower quadrant tenderness. No rebound, no guarding. EXTREMITIES: Show no edema. LABORATORY DATA: Revealed white blood cell count of 5.3 from 12, hemoglobin 14.1, platelet count of 179,000. Chemistries reveal normal electrolytes. IMPRESSION: A 42-year-old male with recurrent sigmoid diverticulitis. His first attack was about 3-1/2 months ago. His pain has improved and he appears to be responding to IV antibiotics. RECOMMENDATIONS: 1. Continue IV Rocephin and Flagyl. 2. Slow diet advancement. Sam Reyes MD
[2018-02-28] MEDS: metroNIDAZOLE IV 500 mg/100 ml 500 MG/100 ML BAG IVPB SCH ×3 (05:37→21:01)
[2018-02-28] MEDS: cefTRIAXone 1 gm 1 GM/100 ML BAG IVPB SCH (10:37)
[2018-02-28] MEDS: Dextrose 5%/0.45% NS 1,000 ML IV SCH (14:04)
--- NOTE | 2018-02-28 15:07 | CP.PCM.PN ---
Subjective - Date & Time of Evaluation Date of Evaluation: 02/28/18 Time of Evaluation: 15:04 - Subjective Subjective: Surgery Pt seen and examined. No acute events. Reports regular BM. non bloody, non diarrhea. Denies Fever, nausea, vomiting. Tolerating diet. Objective - Vital Signs/Intake and Output Vital Signs (last 24 hours): Temp Pulse Resp BP Pulse Ox 98.3 F 77 20 110/71 98 02/28/18 06:00 02/28/18 06:00 02/28/18 06:00 02/28/18 06:00 02/28/18 06:00 Intake and Output: 02/28/18 02/28/18 06:59 18:59 Intake Total 2500 600 Balance 2500 600 - Medications Medications: Current Medications Acetaminophen (Tylenol 325mg Tab) 650 mg PO Q6H PRN PRN Reason: Pain, moderate (4-7) Last Admin: 02/26/18 10:41 Dose: 650 mg Famotidine (Pepcid) 20 mg IVP Q12 [facility] Last Admin: 02/28/18 10:36 Dose: 20 mg Ceftriaxone Sodium (Rocephin 1 Gram Ivpb) 1 gm in 100 mls @ 100 mls/hr IVPB DAILY [facility] PRN Reason: Protocol Last Admin: 02/28/18 10:37 Dose: 100 mls/hr Metronidazole (Flagyl) 500 mg in 100 mls @ 100 mls/hr IVPB Q8 [facility] PRN Reason: Protocol Last Admin: 02/28/18 14:00 Dose: 100 mls/hr Dextrose/Sodium Chloride (Dextrose 5%/0.45% Ns 1000 Ml) 1,000 mls @ 70 mls/hr IV .[id number] [facility] Last Admin: 02/28/18 14:04 Dose: 70 mls/hr Morphine Sulfate (Morphine) 4 mg IVP Q4H [facility] PRN Reason: Pain, severe (8-10) Ondansetron HCl (Zofran Inj) 4 mg IVP Q6H PRN PRN Reason: Nausea/Vomiting - Labs Labs: 02/27/18 07:00 02/27/18 07:00 PT 12.3 SECONDS (9.4-12.5) 02/25/18 18:36 INR 1.08 (0.93-1.08) 02/25/18 18:36 APTT 30.3 Seconds (25.1-36.5) 02/25/18 18:36 - Constitutional Appears: No Acute Distress - Head Exam Head Exam: ATRAUMATIC, NORMAL INSPECTION, NORMOCEPHALIC - Eye Exam Eye Exam: EOMI, Normal appearance, PERRL Pupil Exam: NORMAL ACCOMODATION, PERRL - ENT Exam ENT Exam: Mucous Membranes Moist, Normal Exam - Neck Exam Neck Exam: Full ROM, Normal Inspection. absent: Lymphadenopathy - Respiratory Exam Respiratory Exam: Clear to Ausculation Bilateral, NORMAL BREATHING PATTERN - Cardiovascular Exam Cardiovascular Exam: REGULAR RHYTHM, +S1, +S2. absent: Murmur - GI/Abdominal Exam GI & Abdominal Exam: Soft, Normal Bowel Sounds. absent: Distended, Firm, Guarding, Rigid, Tenderness, Mass - Exam Exam: NORMAL INSPECTION - Extremities Exam Extremities Exam: Full ROM, Normal Capillary Refill, Normal Inspection. absent : Joint Swelling, Pedal Edema - Back Exam Back Exam: NORMAL INSPECTION - Neurological Exam Neurological Exam: Alert, Awake, CN II-XII Intact, Normal Gait, Oriented x3 - Psychiatric Exam Psychiatric exam: Normal Affect, Normal Mood - Skin Skin Exam: Dry, Intact, Normal Color, Warm Assessment and Plan - Assessment and Plan (Free Text) Assessment: Sigmoid diverticulitis Advance diet as tolerated. Clear for DC for surgical standpoint. Follow up with GI for colonoscopy in 4-8 weeks. Low fiber diet for 6 weeks then high fiber diet after normal colonoscopy. EVELYN Lr
--- NOTE | 2018-02-28 16:33 | PN ---
DATE: 02/28/2018 SUBJECTIVE: This 42-year-old male was examined at his bedside and this case was reviewed with nurse, Radha Arenas, from GI as well as nurse, Estrellita Chandler, registered nurse. The patient was seen earlier by both Gastroenterology and Surgery. He has had his diet advanced to full liquids. The patient states that upon attempting that diet earlier today, he complained of mild abdominal discomfort and is aware that if he should have any further pain to tell the nurse and to desist from eating. This was discussed with GI who states that his advancing of diet should proceed slowly. Of note, since admission, there have been no fever, chills, chest pain, or shortness of breath and the patient did indeed have a formed bowel movement that was nonbloody in nature. PHYSICAL EXAMINATION: GENERAL: He is lying in his bed, alert and oriented x3. Denying any fever, chills, chest pain or abdominal pain. VITAL SIGNS: Temperature is 98.3, respirations 20, pulse 77, and blood pressure 110/71 with a pulse ox of 98%. HEENT: Head is normocephalic, atraumatic. Eyes: No icterus. Ears: Clear. Throat: Noninjected. NECK: Supple. HEART: Regular S1, S2. LUNGS: Clear. ABDOMEN: Soft, nontender. No rebound, no guarding, no tenderness, especially on palpation of left lower quadrant. EXTREMITIES: No edema. SKIN: Without rash. NEUROLOGICAL: Alert and oriented x3. Motor strength intact. PSYCHOLOGICAL: Intact. LABORATORY DATA: White count 5300, hemoglobin 14.1, hematocrit 41.7, platelets 179,000. PT/INR 1.08, PTT 30.3. Sodium 142, K 3.8, chloride 104, bicarb 28, BUN 12, creatinine 1.3, random blood sugar 84. All liver function testing was normal. Urinalysis was unremarkable. IMPRESSION: A 42-year-old male with recurrent left lower quadrant diverticulitis. PLAN: As discussed with the patient, nursing, Gastroenterology, and Surgery, will be to continue D5, 0.45 saline at 70 mL/hour, Flagyl 500 mg IV every 8 hours, morphine 4 mg IV every 4 hours p.r.n. severe pain, Pepcid 20 mg IV every 12 hours, Rocephin 1 g IV every 24 hours, Tylenol 650 p.o. every 4 to 6 hours p.r.n. mild pain or temperature greater than 101, Zofran 4 mg IV every 6 hours p.r.n. nausea or vomiting. He continues on his full liquid diet, antiembolism stockings are being worn and to be removed at nighttime. He is ordered to be out of bed to chair as tolerated and ambulated with assistance. All of the above was reviewed in detail with the patient and nursing and additional testing and advancement of diet will be determined based on the patient's clinical course. Rosa M Raza MD MTDD
--- NOTE | 2018-02-28 17:04 | CP.PCM.PN ---
Subjective - Date & Time of Evaluation Date of Evaluation: 02/28/18 Time of Evaluation: 10:50 - Subjective Subjective: Seen and examined at the bedside earlier today, chart was reviewed. No acute overnight events reported. Patient still has left lower quadrant abdominal on deep palpation as per patient but pain has significantly improved. Tolerating full liquid diet. Denies nausea, vomiting, fever or chills. Objective - Vital Signs/Intake and Output Vital Signs (last 24 hours): Temp Pulse Resp BP Pulse Ox 98.4 F 77 18 122/90 97 02/28/18 14:00 02/28/18 14:00 02/28/18 14:00 02/28/18 14:00 02/28/18 14:00 Intake and Output: 02/28/18 02/28/18 06:59 18:59 Intake Total 2500 600 Balance 2500 600 - Medications Medications: Current Medications Acetaminophen (Tylenol 325mg Tab) 650 mg PO Q6H PRN PRN Reason: Pain, moderate (4-7) Last Admin: 02/26/18 10:41 Dose: 650 mg Famotidine (Pepcid) 20 mg IVP Q12 [facility] Last Admin: 02/28/18 10:36 Dose: 20 mg Ceftriaxone Sodium (Rocephin 1 Gram Ivpb) 1 gm in 100 mls @ 100 mls/hr IVPB DAILY [facility] PRN Reason: Protocol Last Admin: 02/28/18 10:37 Dose: 100 mls/hr Metronidazole (Flagyl) 500 mg in 100 mls @ 100 mls/hr IVPB Q8 [facility] PRN Reason: Protocol Last Admin: 02/28/18 14:00 Dose: 100 mls/hr Dextrose/Sodium Chloride (Dextrose 5%/0.45% Ns 1000 Ml) 1,000 mls @ 70 mls/hr IV .[id number] [facility] Last Admin: 02/28/18 14:04 Dose: 70 mls/hr Morphine Sulfate (Morphine) 4 mg IVP Q4H [facility]N PRN Reason: Pain, severe (8-10) Ondansetron HCl (Zofran Inj) 4 mg IVP Q6H PRN PRN Reason: Nausea/Vomiting - Labs Labs: 02/27/18 07:00 02/27/18 07:00 PT 12.3 SECONDS (9.4-12.5) 02/25/18 18:36 INR 1.08 (0.93-1.08) 02/25/18 18:36 APTT 30.3 Seconds (25.1-36.5) 02/25/18 18:36 - Constitutional Appears: No Acute Distress - Head Exam Head Exam: NORMOCEPHALIC - Eye Exam Eye Exam: Normal appearance. absent: Scleral icterus - ENT Exam ENT Exam: Mucous Membranes Moist - Neck Exam Neck Exam: Normal Inspection - Respiratory Exam Respiratory Exam: NORMAL BREATHING PATTERN. absent: Respiratory Distress - Cardiovascular Exam Cardiovascular Exam: +S1, +S2 - GI/Abdominal Exam GI & Abdominal Exam: Soft, Tenderness (LLQ on deep palpation), Normal Bowel Sounds. absent: Distended, Guarding, Organomegaly, Rebound - Extremities Exam Extremities Exam: absent: Calf Tenderness, Pedal Edema - Neurological Exam Neurological Exam: Alert, Awake, Oriented x3 - Skin Skin Exam: Dry, Warm Assessment and Plan - Assessment and Plan (Free Text) Assessment: Assessment: Acute diverticulitis, ?abscess/microperforation CT scan reporting foci or air within diverticula History of diverticulosis with diverticulitis 11/2017 Plan: on full liquids, advance slowly as tolerated. Continue Flagyl 500 every 8 hours IV continue ceftriaxone 1 g IV daily Monitor electrolytes GI prophylaxis Pain mgt. OOB surgery on board, no intervention needed at this time currently no plans for colonscopy, recent colon 11/2017, no acute findings, will monitor progress case discussed w/ Dr. Crowder. Seen and discussed with Dr. Kenny.
[2018-03-01] MEDS: Dextrose 5%/0.45% NS 1,000 ML IV SCH (05:15)
[2018-03-01] MEDS: metroNIDAZOLE IV 500 mg/100 ml 500 MG/100 ML BAG IVPB SCH (05:17)
[2018-03-01 07:25] LABS: BLOOD UREA NITROGEN 10 mg/dL (7-21); CALCIUM 9.2 mg/dL (8.4-10.5); GFR AFRICAN-AMERICAN > 60; GFR NON-AFRICAN AMERICAN > 60
[2018-03-01] MEDS: cefTRIAXone 1 gm 1 GM/100 ML BAG IVPB SCH (09:25)
--- NOTE | 2018-03-01 13:23 | CP.PCM.PN ---
Subjective - Date & Time of Evaluation Date of Evaluation: 03/01/18 Time of Evaluation: 11:30 - Subjective Subjective: Seen and examined at the bedside earlier today, chart review. Patient is tolerating soft low residual diet. No abdominal pain but report that it just feels "sore". Ambulating when necessary. Having bowel movements that are formed no reports of bleeding. Objective - Vital Signs/Intake and Output Vital Signs (last 24 hours): Temp Pulse Resp BP Pulse Ox 97.7 F 69 18 121/82 97 03/01/18 06:00 03/01/18 06:00 03/01/18 06:00 03/01/18 06:00 03/01/18 06:00 Intake and Output: 03/01/18 03/01/18 06:59 18:59 Intake Total 1040 Balance 1040 - Medications Medications: Current Medications Acetaminophen (Tylenol 325mg Tab) 650 mg PO Q6H PRN PRN Reason: Pain, moderate (4-7) Last Admin: 02/26/18 10:41 Dose: 650 mg Famotidine (Pepcid) 20 mg PO Q12 [facility] Last Admin: 03/01/18 09:25 Dose: 20 mg Ceftriaxone Sodium (Rocephin 1 Gram Ivpb) 1 gm in 100 mls @ 100 mls/hr IVPB DAILY [facility] PRN Reason: Protocol Last Admin: 03/01/18 09:25 Dose: 100 mls/hr Metronidazole (Flagyl) 500 mg in 100 mls @ 100 mls/hr IVPB Q8 [facility] PRN Reason: Protocol Last Admin: 03/01/18 05:17 Dose: 100 mls/hr Dextrose/Sodium Chloride (Dextrose 5%/0.45% Ns 1000 Ml) 1,000 mls @ 70 mls/hr IV .[id number] [facility] Last Admin: 03/01/18 05:15 Dose: 70 mls/hr Morphine Sulfate (Morphine) 4 mg IVP Q4H PRN PRN Reason: Pain, severe (8-10) Ondansetron HCl (Zofran Inj) 4 mg IVP Q6H PRN PRN Reason: Nausea/Vomiting - Labs Labs: 02/27/18 07:00 03/01/18 06:20 PT 12.3 SECONDS (9.4-12.5) 02/25/18 18:36 INR 1.08 (0.93-1.08) 02/25/18 18:36 APTT 30.3 Seconds (25.1-36.5) 02/25/18 18:36 - Constitutional Appears: No Acute Distress - Head Exam Head Exam: NORMOCEPHALIC - Eye Exam Eye Exam: Normal appearance. absent: Scleral icterus - ENT Exam ENT Exam: Mucous Membranes Moist - Neck Exam Neck Exam: Normal Inspection - Respiratory Exam Respiratory Exam: Clear to Ausculation Bilateral, NORMAL BREATHING PATTERN. absent: Respiratory Distress - Cardiovascular Exam Cardiovascular Exam: +S1, +S2 - GI/Abdominal Exam GI & Abdominal Exam: Soft, Normal Bowel Sounds. absent: Guarding, Tenderness, Rebound - Extremities Exam Extremities Exam: absent: Calf Tenderness, Pedal Edema - Neurological Exam Neurological Exam: Alert, Awake, Oriented x3 Assessment and Plan - Assessment and Plan (Free Text) Assessment: Assessment: Acute diverticulitis, ?abscess/microperforation CT scan reporting foci or air within diverticula History of diverticulosis with diverticulitis 11/2017 Plan: on soft low residual diet, introduce dietary fiber slowly. Continue Flagyl 500 every 8 hours IV continue ceftriaxone 1 g IV daily Monitor electrolytes GI prophylaxis Pain mgt. OOB surgery on board, no intervention needed at this time discussed with patient regarding outpatient GI follow-up. recommend upon discharge for patient to complete a total of 14 days of antibiotic therapy. Seen and discussed with Dr. Kenny.
[2018-03-01 15:15] VITALS: BP 138/77; PULSE 81; RESP 20; TEMP 98.1; O2SAT 98
--- NOTE | 2018-03-02 12:57 | DS ---
FINAL DIAGNOSES: Recurrent left lower quadrant diverticulitis. CONSULTANTS: Dr. Sharonda Kenny from GI, Dr. Sampson Berg from Surgery. The patient was cleared by Surgery and GI for discharge to home. The patient was advised to follow up with his PMD, Dr. Seng Lake, medical doctor in 48 hours. The patient is discharged to home on a low fiber, no seeds, no nuts diet as reviewed by Dietary. Also, he was given a prescription for Flagyl 500 mg p.o. t.i.d. #30 and Cipro 500 mg p.o. b.i.d. #20. SUMMARY: This 42-year-old male was admitted to [facility] (Former[facility]) with abdominal pain and radiographic evidence of recurrent left lower colon quadrant diverticulitis. He was made n.p.o., started on IV fluids, IV Rocephin, IV Flagyl, IV Pepcid, and seen in consultation by GI and Surgery. Hospital course was notable for improvement in clinical status as well as laboratories including white blood cell count on admission of 12,000 and on discharge 5300. At the time of discharge, he was tolerating a low-fiber diet, having normal bowel movements, and denying any abdominal pain. Temperature was 97.7, respirations 18, pulse 69, and blood pressure 121/82 with pulse ox 97%. Discharge labs showed white count 5300, hemoglobin 14.1, hematocrit 41.7, platelets 179,000. Sodium 139, K 4.1, chloride 105, bicarb 25. BUN 10, creatinine 1.2. Random blood sugar 91. All liver function testing was normal including bilirubin 1, AST 45, ALT 50, and alk phos 67. Urinalysis was negative. The patient was discharged to home. He is aware of his antibiotic instructions. He is aware of his dietary restrictions, the need to follow up with his PMD, and to return to the ER for any change in signs and symptoms including worsening abdominal pain. The patient is aware and in agreement with the above and has requested to return to work from 03/07/2018. Rosa M Raza MD [facility] # [id number]
== END 2018-03-01 16:26 | disposition home or self-care (01) | DRG 392 ==
LOC: ED 16:18 → ERH 21:34 → 5RNO 22:44
PROVIDERS: ADMIT Internal Medicine; ATTEND Internal Medicine
DX: K57.20 Diverticulitis of large intestine with perforation and abscess without bleeding (principal)

== ENCOUNTER 2018-07-16 19:07 | Emergency (ER) | payer BC ==
[2018-07-16 19:08] VITALS: BMI 29.0
[2018-07-16 19:15] VITALS: TEMP 99.1
--- NOTE | 2018-07-16 19:34 | ED PDOC ---
Arrival/HPI - General Chief Complaint: Male Genitourinary Time Seen by Provider: 07/16/18 19:25 Historian: Patient - History of Present Illness Narrative History of Present Illness (Text): 07/16/18 19:31 43yo male with pmhx of gout who present with complaint suprapubic abdominal pain / dysuria with urination x 2weeks. States he was seen by his PMD for the symptoms and all lab result was negative. States he was referred to a urologist and his first appointment is on the , but he didn't want to wait till then. states he finds out that he can't hold his urination when he gets the urge, but denies urinary frequency. Denies hematuria, nausea, vomiting, diarrhea, fever, chills, back pain, penile discharge,any other complaint. states he is not worried about STD. Past Medical History - Provider Review Nursing Documentation Reviewed: Yes - Past History Past History: No Previous - Infectious Disease Hx of Infectious Diseases: None - Tetanus Immunization Tetanus Immunization: Unknown - Cardiac Hx Cardiac Disorders: No - Pulmonary Hx Respiratory Disorders: No - Neurological Hx Neurological Disorder: No - HEENT Hx HEENT Disorder: No - Renal Hx Renal Disorder: No - Endocrine/Metabolic Hx Endocrine Disorders: No - Hematological/Oncological Hx Blood Disorders: No - Integumentary Hx Dermatological Disorder: No - Musculoskeletal/Rheumatological Hx Musculoskeletal Disorders: Yes Hx Gout: Yes - Gastrointestinal Hx Gastrointestinal Disorders: Yes Hx Diverticulitis: Yes - Genitourinary/Gynecological Hx Genitourinary Disorders: No - Psychiatric Hx Psychophysiologic Disorder: No Hx Substance Use: No - Anesthesia Hx Anesthesia: No - Suicidal Assessment Feels Threatened In Home Enviroment: No Family/Social History - Physician Review Nursing Documentation Reviewed: Yes Family/Social History: Unknown Family HX Smoking Status: Never Smoked Hx Alcohol Use: Yes Hx Substance Use: No Hx Substance Use Treatment: No Allergies/Home Meds Allergies/Adverse Reactions: Allergies No Known Allergies Allergy (Verified 07/16/18 19:11) Review of Systems - Physician Review All systems were reviewed & negative as marked: Yes - Review of Systems Constitutional: Normal Eyes: Normal ENT: Normal Respiratory: Normal Cardiovascular: Normal Gastrointestinal: Abdominal Pain. absent: Constipation, Diarrhea, Nausea, Vomiting, Hematemesis Genitourinary Male: Dysuria. absent: Frequency, Hematuria Musculoskeletal: Normal Skin: Normal Neurological: Normal Endocrine: Normal Hemo/Lymphatic: Normal Psychiatric: Normal Physical Exam Vital Signs Reviewed: Yes Vital Signs Temp Pulse Resp BP Pulse Ox 07/16/18 20:07 76 18 122/78 98 07/16/18 19:12 99.1 F 97 H 16 112/77 96 Temperature: Afebrile Blood Pressure: Normal Pulse: Regular Respiratory Rate: Normal Appearance: Positive for: Well-Appearing, Non-Toxic, Comfortable Pain Distress: None Mental Status: Positive for: Alert and Oriented X 3 - Systems Exam Head: Present: Atraumatic, Normocephalic Pupils: Present: PERRL Extroacular Muscles: Present: EOMI Conjunctiva: Present: Normal Mouth: Present: Moist Mucous Membranes Neck: Present: Normal Range of Motion Respiratory/Chest: Present: Clear to Auscultation, Good Air Exchange. No: Respiratory Distress, Accessory Muscle Use Cardiovascular: Present: Regular Rate and Rhythm, Normal S1, S2. No: Murmurs Abdomen: Present: Normal Bowel Sounds, Other (soft). No: Tenderness, Distention , Peritoneal Signs, Rebound, Guarding, McBurney's Point Tender, Rovsing's Sign Present Back: Present: Normal Inspection Upper Extremity: Present: Normal Inspection. No: Cyanosis, Edema Lower Extremity: Present: Normal Inspection. No: Edema Neurological: Present: GCS=15, CN II-XII Intact, Speech Normal Skin: Present: Warm, Dry, Normal Color. No: Rashes Psychiatric: Present: Alert, Oriented x 3, Normal Insight, Normal Concentration Medical Decision Making ED Course and Treatment: 07/16/18 20:23 Pt was seen in ED for stated history. UA was negative. He was comfortable and in no distress in ED. PT noted that he already have appointment with a Urologist on and was advised to f/u. Pyridium was given for symptomatic relieve. - Lab Interpretations Lab Results: Lab Results 07/16/18 19:35: Urine Color Light yellow, Urine Appearance Clear, Urine pH 6.5, Ur Specific Cornell 1.020, Urine Protein Negative, Urine Glucose (UA) Negative, Urine Ketones Negative, Urine Blood Negative, Urine Nitrate Negative, Urine Bilirubin Negative, Urine Urobilinogen 0.2, Ur Leukocyte Esterase Negative Disposition/Present on Arrival - Present on Arrival Any Indicators Present on Arrival: No History of DVT/PE: No History of Uncontrolled Diabetes: No Urinary Catheter: No History of Decub. Ulcer: No History Surgical Site Infection Following: None - Disposition Have Diagnosis and Disposition been Completed?: Yes Diagnosis: Dysuria Disposition: HOME/ ROUTINE Disposition Time: 19:50 Patient Plan: Discharge Condition: STABLE Discharge Instructions (ExitCare): Dysuria, Adult (DC) Additional Instructions: Follow up with Urologist Return to ED for any new or worsening symptoms Prescriptions: Phenazopyridine [Pyridium] 200 mg PO PC #6 tab Referrals: Ciro Toledo MD [Staff Provider] - Follow up with primary Forms: [employer] (Armenian)
[2018-07-16 19:42] LABS: PH,URINE 6.5 (4.7-8.0); URINE APPEARANCE CLEAR (CLEAR); URINE BILIRUBIN NEGATIVE (NEGATIVE); URINE BLOOD NEGATIVE (NEGATIVE); URINE COLOR LIGHT YELLOW (YELLOW); URINE GLUCOSE (UA) NEGATIVE (NEGATIVE); URINE LEUKOCYTE ESTERASE NEGATIVE Leu/uL (NEGATIVE); URINE PROTEIN NEGATIVE mg/dL (<30 mg/dL); URINE UROBILINOGEN 0.2 E.U./dL (<1 E.U./dL)
[2018-07-16 20:07] VITALS: BP 122/78; PULSE 76; RESP 18; O2SAT 98
== END 2018-07-16 20:07 | disposition home or self-care (01) ==
LOC: ED 19:07
DX: R30.0 Dysuria (principal)